=== PATIENT | male | born 2000 | race African-American/Black ===

== ENCOUNTER 2021-11-06 06:57 | Emergency (ER) | payer SELFPAY ==
[2021-11-06 07:29] LABS: Urine Blood Trace-intact (Negative); Urine Glucose Negative (Negative); Urine Protein Negative (Negative); Urine pH 6.5 (5.0-7.0)
--- NOTE | 2021-11-06 08:37 | RAD REPORT ---
EXAM DESCRIPTION: US - Scrotum Testicles - 11/06/2021 8:25 am CLINICAL HISTORY: PAIN COMPARISON: No comparisons FINDINGS: The right testicle 4 x 2.1 x 3.1 cm with volume of 13.6 cc. No intratesticular masses or e vidence of testicular torsion. The left testicle 4.1 x 2 x 3.2 cm with volume of 13.6 cc. No intratesticular masses or evidence of t esticular torsion. Both epididymides are normal in size and appearance. Small hydroceles. IMPRESSION: Bilateral testicular blood flow. Small hydroceles.
--- NOTE | 2021-11-06 09:31 | EDPHYS ---
Physician Documentation [facility] Name: Yossi Valdez Age: 21 yrs Sex: Male : 2000 Arrival Date: 11/06/2021 Time: 06:58 Bed 14 Private MD: ED Physician Patricia Redd HPI: 11/06 09:32 This 21 yrs old Black Male presents to ER via Ambulatory with complaints of Testicular sd2 Lump, Testicular Pain. 07:32 21-year-old male presents with a chief complaint of testicular lumps and pain that he sd2 first noticed approximately a week ago but the pain began 2 days ago. He states he first noticed a lump in his right testicle that did not cause him any pain and then noticed 2 days ago a lump in his left testicle that was causing him discomfort. He denies any penile discharge, dysuria or hematuria. He has not noticed any rashes or lesions to the area. He is sexually active and does not use protection with one partner. He does not believe he is at risk for sexually transmitted infections at this time. He denies any fever, abdominal pain, vomiting or diarrhea.. Historical: - Allergies: 07:14 No Known Allergies; vg1 - Home Meds: 07:14 None [Active]; vg1 - PMHx: 07:14 None; vg1 - PSHx: 07:14 None; vg1 - Immunization history:: Client reports receiving the 2nd dose of the Covid vaccine. - Social history:: Smoking status: Patient denies any tobacco usage or history of. Patient uses street drugs, marijuana. ROS: 07:32 Constitutional: Negative for fever, chills, and weight loss, Cardiovascular: Negative sd2 for chest pain, palpitations, and edema, Respiratory: Negative for shortness of breath, cough, wheezing. Abdomen/GI: Negative for abdominal pain, nausea, vomiting, diarrhea. Back: Negative for injury and pain, : Negative for injury, bleeding, discharge, and swelling, Positive for testicular lumps and testicular pain. Skin: Negative for injury, rash, and discoloration, Hematologic/Lymphatic: Negative for swollen nodes, abnormal bleeding, and unusual bruising. Exam: 07:32 Constitutional: This is a well developed, well nourished patient who is awake, alert, sd2 and in no acute distress. Head/Face: Normocephalic, atraumatic. Chest/axilla: Normal chest wall appearance and motion. Nontender with no deformity. Cardiovascular: Regular rate and rhythm with a normal S1 and S2. No gallops, murmurs, or rubs. 2+ distal pulses. Respiratory: Lungs have equal breath sounds bilaterally, clear to auscultation and percussion. No rales, rhonchi or wheezes noted. No increased work of breathing, no retractions or nasal flaring. Abdomen/GI: Soft, non-tender, with normal bowel sounds. No guarding or rebound. No evidence of tenderness throughout. Male : Normal genitalia with no discharge or lesions. Scrotum noted to have small nodules or indentations to both the inferior R and L scrotum. No appreciable swelling, discharge or skin lesions. No LAD. Skin: Warm, dry with normal turgor. Normal color with no rashes, no lesions, and no evidence of cellulitis. Vital Signs: 07:12 BP 135 / 90; Pulse 82; Resp 16; Temp 98.1; Pulse Ox 100% ; Weight 67.13 kg; Height 5 vg1 ft. 11 in. (180.34 cm); Pain 5/10; 08:00 BP 123 / 82; Pulse 62; Resp 14 S; Pulse Ox 100% on R/A; Pain 0/10; jg9 08:45 BP 133 / 79; Pulse 69; Resp 12 S; Pulse Ox 100% on R/A; Pain 0/10; jg9 09:50 BP 141 / 90; Pulse 64; Resp 12 S; Pulse Ox 100% on R/A; Pain 0/10; jg9 07:12 Body Mass Index 20.64 (67.13 kg, 180.34 cm) vg1 MDM: 07:18 Patient medically screened. sd2 07:32 Differential diagnosis: STI, hydrocele, varicocele, epididymitis, UTI among others. sd2 09:21 ED course: Pt resting comfortably. In no significant discomfort. Agreeable to sd2 prophylactic treatment for STI pending results. Informed of hydroceles and need for follow up with Urology as needed. Pt verbalizes understanding of discharge plan and strict return precautions at this time.. 09:29 Counseling: I had a detailed discussion with the patient and/or guardian regarding: the sd2 historical points, exam findings, and any diagnostic results supporting the discharge/admit diagnosis, lab results, radiology results, the need for outpatient follow up, to return to the emergency department if symptoms worsen or persist or if there are any questions or concerns that arise at home. Medical screen evaluation completed. EMTALA emergency medical condition absent. Medical screen evaluation completed. EMTALA emergency medical condition absent. Medical screen evaluation completed. EMTALA emergency medical condition absent. 09:32 Data reviewed: vital signs, nurses notes, lab test result(s), urinalysis, radiologic sd2 studies, ultrasound. 11/06 07:29 Order name: GC (GONORR/CHLAMYDIA) Probe sd2 11/06 07:29 Order name: US Scrotum Testicles; Complete Time: 09:03 sd2 11/06 07:29 Order name: Urine Dipstick-Ancillary; Complete Time: 08:01 EDMT 11/06 07:31 Order name: Urine Dipstick-Ancillary (obtain specimen); Complete Time: 07:32 tw2 Administered Medications: 09:40 Drug: Rocephin (cefTRIAXone) 500 mg Route: IM; Site: right deltoid; jg9 09:44 Follow up: Response: No adverse reaction; Medication administered at discharge. jg9 09:40 Drug: AZITHromycin 1 grams Route: PO; jg9 09:44 Follow up: Response: No adverse reaction; Medication administered at discharge. jg9 Disposition Summary: 11/06/21 09:31 Discharge Ordered Location: Home sd2 Problem: new sd2 Symptoms: are unchanged sd2 Condition: Stable sd2 Diagnosis - Hydrocele, unspecified sd2 Followup: sd2 - With: Private Physician - When: - Reason: Recheck today's complaints, Continuance of care, Re-evaluation by your physician Followup: sd2 - With: Keith Camarillo MD - When: - Reason: Recheck today's complaints Discharge Instructions: - Discharge Summary Sheet sd2 - Testicular Self-Exam sd2 - Hydrocele, Adult sd2 - Preventing Sexually Transmitted Infections, Adult sd2 Forms: - Medication Reconciliation Form sd2 - Thank You Letter sd2 - Antibiotic Education sd2 - Prescription Opioid Use sd2 Signatures: Dispatcher [employer] EDMT Marni Andrews RN RN tw2 Nikki Martinez RN RN vg1 Danika Anaya RN RN jg9 Patricia Redd sd2 Corrections: (The following items were deleted from the chart) 07:42 07:30 URINALYSIS+U.LAB.WENDY ordered. EDMS EDMS
--- NOTE | 2021-11-06 09:31 | ER ---
Nurse's Notes [facility] Name: Yossi Valdez Age: 21 yrs Sex: Male : 2000 Arrival Date: 11/06/2021 Time: 06:58 Bed 14 Private MD: Diagnosis: Hydrocele, unspecified Presentation: 11/06 07:12 Chief complaint: Patient states: noticed a lump on Right testicle about a week ago and vg1 then about two days ago noticed a lump on Left testicle with pain. Denies NV, blood in urine, or burning upon urination. States lower ABD pain/pressure. Coronavirus screen: Vaccine status: Patient reports receiving the 2nd dose of the covid vaccine. Client denies travel out of the [place] in the last 14 days. Ebola Screen: Patient denies exposure to infectious person. Patient denies travel to an Ebola-affected area in the 21 days before illness onset. Initial Sepsis Screen: Does the patient meet any 2 criteria? No. Patient's initial sepsis screen is negative. Does the patient have a suspected source of infection? No. Patient's initial sepsis screen is negative. Risk Assessment: Do you want to hurt yourself or someone else? Patient reports no desire to harm self or others. Onset of symptoms was October 30, 2021. 07:12 Method Of Arrival: Ambulatory vg1 07:12 Acuity: SACHI 3 vg1 Triage Assessment: 07:14 General: Appears in no apparent distress. uncomfortable, Behavior is calm, cooperative. vg1 Pain: Complains of pain in groin and suprapubic area Pain currently is 5 out of 10 on a pain scale. Quality of pain is described as sharp, pressure. GI: Abdomen is flat, Patient currently denies nausea, vomiting. : Denies burning with urination, discharge. Historical: - Allergies: 07:14 No Known Allergies; vg1 - Home Meds: 07:14 None [Active]; vg1 - PMHx: 07:14 None; vg1 - PSHx: 07:14 None; vg1 - Immunization history:: Client reports receiving the 2nd dose of the Covid vaccine. - Social history:: Smoking status: Patient denies any tobacco usage or history of. Patient uses street drugs, marijuana. Screenin:01 Abuse screen: Denies threats or abuse. Denies injuries from another. Nutritional jg9 screening: No deficits noted. Tuberculosis screening: No symptoms or risk factors identified. Fall Risk None identified. Assessment: 09:00 Reassessment: No changes from previously documented assessment. Patient and/or family jg9 updated on plan of care and expected duration. Pain level reassessed. Patient is alert, oriented x 3, equal unlabored respirations, skin warm/dry/pink. Vital Signs: 07:12 BP 135 / 90; Pulse 82; Resp 16; Temp 98.1; Pulse Ox 100% ; Weight 67.13 kg; Height 5 vg1 ft. 11 in. (180.34 cm); Pain 5/10; 08:00 BP 123 / 82; Pulse 62; Resp 14 S; Pulse Ox 100% on R/A; Pain 0/10; jg9 08:45 BP 133 / 79; Pulse 69; Resp 12 S; Pulse Ox 100% on R/A; Pain 0/10; jg9 09:50 BP 141 / 90; Pulse 64; Resp 12 S; Pulse Ox 100% on R/A; Pain 0/10; jg9 07:12 Body Mass Index 20.64 (67.13 kg, 180.34 cm) vg1 ED Course: 06:58 Patient arrived in ED. as 07:14 Triage completed. vg1 07:14 Arm band placed on. vg1 07:18 Patricia Redd is Attending Physician. sd2 07:28 Danika Anaya, RN is Primary Nurse. jg9 07:32 served as control clerk subassembly during scrotal examination. tw2 07:37 GC (GONORR/CHLAMYDIA) Probe Sent. tw2 08:24 Patient has correct armband on for positive identification. Bed in low position. Call jg9 light in reach. Side rails up X 1. 08:26 US Scrotum Testicles In Process Unspecified. EDMS 09:30 Keith Camarillo MD is Referral Physician. sd2 09:51 Patient did not have IV access during this emergency room visit. jg9 Administered Medications: 09:40 Drug: Rocephin (cefTRIAXone) 500 mg Route: IM; Site: right deltoid; jg9 09:44 Follow up: Response: No adverse reaction; Medication administered at discharge. jg9 09:40 Drug: AZITHromycin 1 grams Route: PO; jg9 09:44 Follow up: Response: No adverse reaction; Medication administered at discharge. jg9 Medication: 09:52 VIS not applicable for this client. jg9 Outcome: 09:31 Discharge ordered by . sd2 09:51 Discharged to home ambulatory. jg9 09:51 Condition: stable 09:51 Discharge instructions given to patient, Instructed on discharge instructions, Demonstrated understanding of instructions, follow-up care. 09:53 Patient left the ED. jg9 Signatures: Dispatcher [employer] EDJacquie Benitez Tara, RN RN tw2 Nikki Martinez, RN RN vg1 Danika Anaya, RN RN jg9 Patricia Redd sd2 Corrections: (The following items were deleted from the chart) 07:16 07:12 Chief complaint: Patient states: noticed a lump on Right testicle about a week vg1 ago and then about two days ago noticed a lump on Left testicle with pain. Denies NV, blood in urine, or burning upon urination. vg1 07:42 07:37 URINALYSIS+U.LAB.BRZ drawn and sent. [address] 09:02 08:00 BP 123 / 82; Pulse 62bpm; Resp 14bpm; Spontaneous; Pulse Ox 100% RA; jg9 jg9
[2021-11-06] MEDS ORDERED: CEFTRIAXONE 500 MG/VIAL ONE (09:43)
[2021-11-06] MEDS ORDERED: AZITHROMYCIN 250 MG TAB ONE (09:43)
[2021-11-06 09:59] VITALS: TEMP 98.1; O2SAT 100
[2021-11-06 10:05] VITALS: BP 141/90
== END 2021-11-06 09:53 | disposition home or self-care (01) ==
LOC: ER 06:57
DX: N43.3 Hydrocele, unspecified (principal)
CPT/HCPCS: 76870; 81003; 87490; 87590; 96372; 99284; J0696